=== PATIENT | male | born 1995 | race Caucasian/White ===

== ENCOUNTER 2023-12-10 09:09 | Observation (INO) | payer OTHER, SELFPAY ==
--- NOTE | ~2023-12-10 | US_ITS ---
EXAMINATION: US abdomen limited DATE: 12/10/2023 13:05 INDICATION: Transaminitis. Hyperbilirubinemia. TECHNIQUE: Multiple grayscale and Doppler ultrasound images of the abdomen were obtained. COMPARISON: 12/20/2023 FINDINGS: The pancreatic head and body are normal in appearance. The pancreatic tail is not visualized. The vi sualized proximal abdominal aorta and inferior vena cava are normal. Liver has normal echogenicity an d contour, with a smooth surface. No liver lesion identified. No intrahepatic biliary duct dilation s uspected. Portal venous flow was seen in the hepatopetal, normal direction and has normal Doppler wav eform. Again seen are at least 10 hypoechoic nodular polyps along the dependent and nondependent wall s of the otherwise normal gallbladder. There is no shadowing cholelithiasis. The common bile duct dunia sures 4 mm, which is normal. Sonographic Foster sign was reported as negative by the machine repairer maintenance. IMPRESSION: 1. At least 10 gallbladder polyps measuring up to 7 mm scattered along the dependent and nondependent wall of the otherwise normal-appearing gallbladder. Otherwise unremarkable right upper quadrant ultr asound. Reviewed, dictated and finalized at location B. IMPRESSION: 1. At least 10 gallbladder polyps measuring up to 7 mm scattered along the depe ndent and nondependent wall of the otherwise normal-appearing gallbladder. Othe rwise unremarkable right upper quadrant ultrasound.
--- NOTE | ~2023-12-10 | CT_ITS ---
EXAMINATION: CT abdomen pelvis w con DATE: 12/10/2023 12:04 INDICATION: Epigastric pain. Transaminitis. Hyperbilirubinemia. TECHNIQUE: Computed tomography (CT) of the abdomen and pelvis was performed with 100 mL Omnipaque-350 intravenous contrast. Automated exposure control and iterative reconstruction technique were employe d. The dose-length product was 326.50 mGy-cm. COMPARISON: None FINDINGS: Lung bases are clear. Heart size is normal. No pericardial or pleural effusion. There are few soft ti ssue density polyps measuring up to 7 mm in maximal diameter along primarily nondependent wall of the otherwise normal gallbladder. Liver is normal. No intra or extra hepatic ductal or ductal dilation. Spleen, pancreas, bilateral adrenal glands and kidneys are normal. Bowels including the appendix are normal. Bladder is normal. No free intraperitoneal gas or fluid. No pathologically enlarged abdominal or pelvic lymphadenopathy. Bones are unremarkable. IMPRESSION: 1. No intra or extra hepatic biliary ductal dilation or other acute intra-abdominal/pelvic process. 2. Multiple gallbladder polyps measuring up to 7 mm. Reviewed, dictated and finalized at location B. IMPRESSION: 1. No intra or extra hepatic biliary ductal dilation or other acute intra-abdom inal/pelvic process. 2. Multiple gallbladder polyps measuring up to 7 mm.
--- NOTE | ~2023-12-10 | MR_ITS ---
EXAMINATION: MR MRCP wo/w con/w 3D wo ind DATE: 12/11/2023 11:54 INDICATION: Abnormal liver function tests. Abdominal pain. TECHNIQUE: Magnetic resonance imaging (MRI) of the abdomen was performed without and with 15 mL Multi Francesca intravenous contrast. Sequences included coronal T2-weighted FS FSE, coronal T2-weighted FSE, a xial T1-weighted LAVA, coronal FS FIESTA, axial dual-echo T1-weighted SPGR, coronal lava-FLEX, sagitt al T2-weighted FSE, axial T2-weighted FSE, and axial DWI. Thick-slab T2-weighted FSE images were obta ined for magnetic resonance cholangiopancreatography (MRCP). Maximum intensity projection 3-D reconst ructions of the volumetric data were created by the technologist. Postcontrast sequences included cor onal LAVA-flex and time course of axial T1-weighted LAVA. COMPARISON: CT abdomen and pelvis 12/10/2023 FINDINGS: ABDOMEN MRI: There is a 4 mm cyst in the liver. The gallbladder is normal in size. There are polyps i n the gallbladder measuring up to 6 mm, likely benign cholesterol polyps needing no follow-up. The sp naman, pancreas, adrenal glands, and kidneys are normal. There are no dilated loops of bowel. ABDOMEN MRCP: The common duct is normal and measures 3 mm. No choledocholithiasis. IMPRESSION: 1. No etiology for the patient's symptoms. Reviewed, dictated and finalized at location A.
[2023-12-10 09:12] VITALS: BP 130/80; PULSE 74; RESP 14; TEMP 36.8; O2SAT 100
[2023-12-10 09:24] LABS: Basophils Percent Auto 0.4 % (0.2-1.2); Eosinophils Absolute Auto 0.2 K/mm3 (0-0.3); Eosinophils Percent Auto 1.9 % (0-4.4); Hematocrit 51.2 % (42.0-52.0); Hemoglobin 17.8 g/dL (14.0-18.0); Immature Granulocyte Absolute 0.03 K/mm3 (0.00-0.031); Immature Granulocyte Percent A 0.3 % (0-0.5); Lymphocytes Absolute Auto 1.54 K/mm3 (0.9-3.2); Lymphocytes Percent Auto 15.2 % (18.3-44.2); Mean Corpuscular HGB Conc 34.8 g/dl (32-36); Mean Corpuscular Hemoglobin 30.7 pg (26-34); Mean Corpuscular Volume 88.3 fl (80-100); Mean Platelet Volume 10.5 fl (7.4-10.4); Monocytes Absolute Auto 0.7 K/mm3 (0.1-0.6); Monocytes Percent Auto 6.6 % (2.6-8.5); Neutrophils Absolute Auto 7.7 K/mm3 (1.3-6.7); Neutrophils Percent Auto 75.6 % (45.5-73.1); Platelet Count Result 203 k/mm3 (150-375); Red Cell Distribution Width 12.9 % (11.5-14.5); White Blood Count 10.1 K/mm3 (4.5-10.0)
--- NOTE | 2023-12-10 09:50 | ECG_ITS ---
Test Date: 2023-12-10 09:59:05 Measurements Intervals [place] Rate: 69 P: 47 MI: 177 QRS: 79 QRSD: 95 T: 35 QT: 344 QTc: 369 Interpretive Statements SINUS RHYTHM ST ELEVATION CONSISTENT WITH INJURY, PERICARDITIS, OR EARLY REPOLARIZATION ABNORMAL ECG No previous ECG available for comparison Electronically Signed On 12-10-2023 10:41:44 CDT by Vincent Vines D.O.
--- NOTE | 2023-12-10 09:51 | ED.ABDPAIN ---
HPI - Abdominal Pain General Chief Complaint: Abdominal Pain <Jacquelin Ellsworth PA-C - Last Filed: 12/10/23 19:00> Stated Complaint: epigastric pain <Jacquelin Ellsworth PA-C - Last Filed: 12/10/23 19:00> Time Seen by Provider: 12/10/23 09:12 <Jacquelin Ellsworth PA-C - Last Filed: 12/10/23 19:00> Source: patient <MARVEL Interiano Last Filed: 12/10/23 19:00> Mode of arrival: ambulatory <MARVEL Interiano Last Filed: 12/10/23 19:00> Limitations: no limitations <Jacquelin Ellsworth PA-C - Last Filed: 12/10/23 19:00> History of Present Illness HPI narrative: This is a 27-year-old male that presents to the emergency department for epigastric abdominal pain. Ongoing since earlier this morning. Reports the pain is sharp and constant in nature. Denies fever, vomiting. <Jacquelin Ellsworth PA-C - Last Filed: 12/10/23 19:00> Related Data Home Medications: Home Medications Medication Instructions Recorded Confirmed No Home Medications 12/10/23 12/10/23 <Jacquelin Ellsworth PA-C - Last Filed: 12/10/23 19:00> Allergies/Adverse Reactions: Allergies Allergy/AdvReac Type Severity Reaction Status Date / Time No Known Allergies Allergy Verified 12/10/23 09:21 <Jacquelin Ellsworth PA-C - Last Filed: 12/10/23 19:00> Review of Systems Review of Systems: CONSTITUTIONAL: Denies fever GASTROINTESTINAL: Reports abdominal pain. Denies nausea, vomiting, or diarrhea. GENITOURINARY: Denies dysuria <Jacquelin Ellsworth PA-C - Last Filed: 12/10/23 19:00> All systems reviewed & are unremarkable except as noted in HPI and below <Jacquelin Ellsworth PA-C - Last Filed: 12/10/23 19:00> [facility] Past Medical History Medical History: Medical History No active medical problems <Jacquelin Ellsworth PA-C - Last Filed: 12/10/23 19:00> Surgical History Surgical History: Surgical History No pertinent past surgical history <Jacquelin Ellsworth PA-C - Last Filed: 12/10/23 19:00> Family History Family History: Family History (Updated 12/10/23 @ 21:26 by Luisa Dimas PA-C) Other Family history non-contributory <Jacquelin Ellsworth PA-C - Last Filed: 12/10/23 19:00> Social History Social History: Social History (Updated 12/10/23 @ 21:26 by Luisa Dimas PA-C) Social History: Surrogate medical decision maker: Diana Jasmine, spouse. Code status: Full code. Smoking status: Current every day smoker Tobacco type: e-cigarettes/vaping Alcohol intake: never Substance use: never Do You Feel Safe in your Home?: Yes Lack of Transportation: No Lack of Food: Never True Current Housing: I Have Housing Concerned About Future Housing: No Difficulty Paying Gas/Electric Bills: No Difficulty Paying for Meds: No Currently Unemployed: No Education: Decline to Answer Difficulty w/ Childcare or Family Care: No Additional living arrangements comments: Lives with spouse and their 3 young children. 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 Spiritual care concerns: No <Jacquelin Ellsworth PA-C - Last Filed: 12/10/23 19:00> Exam Narrative: GENERAL: Well-appearing, well-nourished, and in no acute distress. HEAD: Normocephalic, atraumatic. EYES: EOMI. CHEST: Clear to auscultation. No respiratory distress. No wheezes rales or rhonchi HEART: Regular rate and rhythm. No murmur heard. Normal peripheral pulses. ABDOMEN: Soft, nontender, nondistended, normal active bowel sounds. EXTREMITIES: Normal range of motion. No edema. SKIN: Warm, dry, no rash. NEURO: No focal deficits. Alert and oriented x3. PSYCH: Normal mood and affect <Jacquelin Ellsworth PA-C - Last Filed: 12/10/23 19:00> Course Course Emergency Course: Patient updated on his workup and recommendation for admission for further evaluation <Jacquelin Paris
[2023-12-10 09:54] LABS: Platelet Estimate Adequate (Adequate); Schistocytes None Seen
[2023-12-10] MEDS: ONDANSETRON INJ 4 MG/2 ML VIAL IV PUSH (09:55)
[2023-12-10] MEDS: SODIUM CHLORIDE 0.9% IV 1,000 ML 999 ML IV CONT (09:55)
[2023-12-10] MEDS: PANTOPRAZOLE SODIUM IV 40 MG VIAL IV PUSH (09:55)
[2023-12-10 09:56] LABS: Add Urine Microscopic? YES; Appearance Urine Cloudy (Clear); Bacteria Urine None Seen /hpf; Bilirubin Urine 2+ (Negative); Blood Urine Negative (Negative); Color Urine Dark Yellow (Yellow); Glucose Urine UA Negative (Negative); Ketones Urine Negative (Negative); Leukocyte Esterase Ur Negative LEU/UL (Negative); Nitrate Urine Negative (Negative); Non Pathogenic Casts 0-2; Protein Urine Trace mg/dL (Negative); RBC Urine 0-2 /hpf (0-2); Specific Grav Ur 1.027 (1.001-1.035); Squamous Epithelial Cell Urine None Seen /hpf (Few); WBC Urine 0-5 /hpf (0-3); pH Urine 6.5 (5.0-9.0)
[2023-12-10 10:36] LABS: Alanine Aminotransferase 259 U/L (6-50); Anion Gap 18 mmol/L (4-12); Aspartate Amino Transferase 433 U/L (17-59); Blood Urea Nitrogen 11 mg/dL (9-20); Calcium 9.1 mg/dL (8.4-10.2); Carbon Dioxide 26 mmol/L (22-30); Chloride 94 mmol/L (98-107); Estimated CRCL calculation 108 ml/min; Estimated Glomerular Filt Rate > 60; Glucose 126 mg/dL (65-110); Potassium 3.7 mmol/L (3.4-5.0); Sodium 138 mmol/L (137-145)
[2023-12-10 10:37] LABS: Alkaline Phosphatase 81 U/L (38-126); Lipase 65 U/L (23-300)
[2023-12-10 10:47] LABS: Troponin I < 0.012 ng/mL (0.000-0.034)
[2023-12-10 11:05] LABS: D Dimer < 0.22 ug/mL (<0.48)
[2023-12-10 11:19] VITALS: BP 111/68; PULSE 67; O2SAT 100
[2023-12-10 14:05] VITALS: BP 112/73; PULSE 65; O2SAT 98
[2023-12-10 15:51] VITALS: BMI 26.0
[2023-12-10 15:56] VITALS: BP 128/61; PULSE 60; RESP 20; TEMP 36.2; O2SAT 100
--- NOTE | 2023-12-10 15:56 | ADMGEN ---
This patient, Jarod Ferraro, was admitted to [facility] Surg Room 315-01. Patient/family oriented to hospital policies and general routines including ID bracelet, bed and alarms, visiting hours, pain management, procedures, bathroom and other care routines, personal items, smoking policy, room service/diet, and visiting hours. Information on how to activate the Rapid Response Team has been discussed. Patient/Family are encouraged to report perceived risks to care and to ask questions if they do not understand what they are told or what they should do.
--- NOTE | 2023-12-10 16:01 | PM.CNGS ---
Assessment and Plan Assessment and plan (1) Polyp of gallbladder: Code(s): K82.4 - Cholesterolosis of gallbladder Status: Acute Assessment and Plan: Patient presented with epigastric abdominal pain that has since resolved. CT scan and ultrasound show multiple gallbladder polyps measuring up to 7 mm with an otherwise normal-appearing gallbladder. Labs revealed elevated LFTs with a total bilirubin of 4.0. Agree with GI consultation and they have already ordered an MRCP. Etiology for his abdominal pain is unclear at this point. Will await further GI workup and MRCP prior to deciding on any surgical intervention. His abdominal pain has resolved and his abdominal exam is completely benign. Will continue to follow along. (2) Transaminitis: Code(s): R74.01 - Elevation of levels of liver transaminase levels Status: Acute Assessment and Plan: GI consulted and MRCP ordered (3) Epigastric abdominal pain: Code(s): R10.13 - Epigastric pain Status: Acute Assessment and Plan: Etiology unclear. Pain has resolved. It is possible to have symptoms from gallbladder polyps and/or potentially have fragments of a cholesterol polyp break free, which could cause symptoms similar to stones. This could also be GI related, but it is concerning that his LFTs are elevated. Will await GI consultation and MRCP. See plan above. Plan I have discussed the patient's case and plan of care with Dr. Myles. Thank you for allowing us to see the patient in consultation and we will continue to follow along with you. History of Present Illness Consult details Consult date: 12/10/23 Reason for consult: other (Gallbladder polyps) Requesting physician: Jacquelin Ellsworth PA-C Narrative: This is a 27 yo man who is otherwise healthy, who we were asked to see in surgical consultation for gallbladder polyps. He presented to the ED today for complaints of epigastric abdominal pain x 1 day. He reports having tator tot casserole for dinner last night and a few hours later, around midnight, he developed epigastric abdominal pain that he describes as being a sharp pain with no radiating factors. Denies any associated symptoms. He was unable to sleep due to the pain. He could only lay flat on his back to get comfortable in bed, as lying on his sides and stomach were painful. This morning, his pain persisted and he presented to the ED. Labs showed WBC count 10,100, total bilirubin 4.0, AST 433, ALT 259, alk phos 81, lipase normal, and troponin negative. UA 2+ bilirubin, 2.[address] scan abdomen and pelvis showed no intra or extrahepatic biliary ductal dilation or other acute intra-abdominal/pelvic process, multiple gallbladder polyps measuring up to 7mm. RUQ abdominal US showed at least 10 gallbladder polyps measuring up to 7 mm in an otherwise normal-appearing gallbladder. He is now seen in the ED. GI was also consulted and ordered an MRCP. With further questioning, he reports that today he noticed dark orange-brown colored urine. Denies acholic stools. Reports his abdominal pain has completely resolved since coming into the ER. He has received Protonix IV, Zofran, and one liter IV fluids. Denies history of similar pain in the past. No previous abdominal surgeries. Review of Systems Review of Systems: All systems reviewed & are unremarkable except as noted in HPI and below PMFSH Past Medical History Medical History (Updated 12/10/23 @ 16:16 by ABRIL Olivas) No active medical problems Surgical History Surgical History No pertinent past surgical history Social History Social History Smoking status: Current every day smoker Tobacco type: e-cigarettes/vaping Alcohol intake: never Substance use: never Do You Feel Safe in your Home?: Yes Lack of Transportation: No Lack of Food: Never True Current Housing:
--- NOTE | 2023-12-10 16:54 | PM.IMHP ---
H&P: HPI History of Present Illness Date/Time: 12/10/23 16:00 Chief Complaint: Abdominal pain. Narrative: The previously healthy 27-year-old male who presented to the emergency department via private vehicle for evaluation of abdominal pain. The patient provides the following history. He had tater tot casserole for dinner last night and sometime around midnight he developed epigastric abdominal pain which he describes as being sharp and shooting in nature. It does not radiate and he denies aggravating and alleviating factors. He was unable to sleep due to the pain. It is not necessarily unusual for him to have heartburn however the symptoms are much different. This morning he took 2 Tums at about 08:00 without improvement and he came in for evaluation. He had a bowel movement sometime in the middle of the night which was unremarkable. He has not noticed any bright red blood or dark stools. He also denies bloating, belching, nausea, and vomiting. She also denies fever, chills, sweats, chest pain, and shortness of breath. He has no known history of gastritis, ulcers, gallbladder disease, or pancreatitis. He denies alcohol abuse and NSAID use. He does drink several energy drinks a day however. Weight has remained stable. No recent travel or sick contacts. In the ED: Labs were significant for WBC count of 10.1, total bilirubin 4.0, AST 433, ALT 259, alkaline phosphatase 81, normal lipase. CT of the abdomen and pelvis showed no intra or extrahepatic biliary ductal dilatation or other acute intra-abdominal/pelvic process but did note multiple gallbladder polyps measuring up to 7 mm. Right upper quadrant ultrasound showed at least 10 gallbladder polyps in an otherwise normal-appearing gallbladder. Review of Systems Review of Systems: 12 systems were reviewed and are negative except for as per HPI. [facility] Past Medical History Medical History No active medical problems Surgical History Surgical History No pertinent past surgical history Family History Family History (Updated 12/10/23 @ 21:26 by Luisa Dimas PA-C) Other Family history non-contributory Social History Social History (Updated 12/10/23 @ 21:26 by Luisa Dimas PA-C) Social History: Surrogate medical decision maker: Diana Ferraro, spouse. Code status: Full code. Smoking status: Current every day smoker Tobacco type: e-cigarettes/vaping Alcohol intake: never Substance use: never Do You Feel Safe in your Home?: Yes Lack of Transportation: No Lack of Food: Never True Current Housing: I Have Housing Concerned About Future Housing: No Difficulty Paying Gas/Electric Bills: No Difficulty Paying for Meds: No Currently Unemployed: No Education: Decline to Answer Difficulty w/ Childcare or Family Care: No Additional living arrangements comments: Lives with spouse and their 3 young children. 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 Spiritual care concerns: No Meds Home Medications and Allergies Home Medications Medication Instructions Recorded Confirmed Type No Home Medications 12/10/23 12/10/23 History Allergies Allergy/AdvReac Type Severity Reaction Status Date / Time No Known Allergies Allergy Verified 12/10/23 09:21 Vital Signs Vital Signs - 24 hr 12/10/23 09:12 12/10/23 11:19 12/10/23 14:05 Temperature 98.2 F Pulse Rate 74 67 65 Respiratory Rate 14 Blood Pressure 130/80 111/68 112/73 Pulse Oximetry 100 100 98 Oxygen Delivery Room Air 12/10/23 15:56 12/10/23 16:03 Temperature 97.1 F L Pulse Rate 60 Respiratory Rate 20 Blood Pressure 128/61 Pulse Oximetry 100 Oxygen Delivery Room Air Exam Narrative: General: Well-developed, nontoxic-appearing male in the semi-Ponce position in bed. Weight: 80.1 kg. BMI: 26.1. HEENT: PERRL, EOMI
[2023-12-10 20:53] VITALS: BP 116/67; PULSE 65; RESP 14; TEMP 37.2; O2SAT 98
[2023-12-10] MEDS: SODIUM CHLORIDE 0.9% IV 1,000 ML 100 ML IV CONT (22:25)
[2023-12-11 06:00] VITALS: BP 111/81; PULSE 66; RESP 16; TEMP 37.2; O2SAT 99
[2023-12-11 07:35] LABS: Hematocrit 46.9 % (42.0-52.0); Hemoglobin 16.1 g/dL (14.0-18.0); Mean Corpuscular HGB Conc 34.3 g/dl (32-36); Mean Corpuscular Hemoglobin 30.1 pg (26-34); Mean Corpuscular Volume 87.8 fl (80-100); Mean Platelet Volume 10.6 fl (7.4-10.4); Platelet Count Result 191 k/mm3 (150-375); Red Blood Count 5.34 M/mm3 (4.6-6.20); Red Cell Distribution Width 13.2 % (11.5-14.5); White Blood Count 5.4 K/mm3 (4.5-10.0)
--- NOTE | 2023-12-11 07:36 | P.CONGI_ITS ---
I, Flakito Butler MD, have provided a substantive portion of the care of this patient and discussed the patient with my Nurse Practitioner. I have reviewed any new relevant radiographic and laboratory results including medications. I agree with her documentation as noted below.?I personally performed the medical decision making and much of the history and exam for this encounter. briefly, he is a healthy anuj not really taking any medications other than protein supplements for almost a year while he was working out daily (he quit about 2 weeks ago after did not have any more time because work). He is here with new onset of severe epigastric pain that did no go away, work up c/w elevated liver enzymes, bili 4, transaminases 200-400 (he normally does not see a doctor, he is not aware of liver disease), imaging showed GB polyps but normal bile duct. Denies alcohol use, hepatitis, illicit drugs. Surgery on board, may need lap namita and probably can get liver biopsy at same time. Will check CK level, also liver work up to check for other less common conditions. Wonder if could be related to protein supplements that he has been using when working out, recommend to not use anymore. Pain is gone after iv pain med. Assessment and Plan Assessment and plan (1) Transaminitis: Code(s): R74.01 - Elevation of levels of liver transaminase levels Status: Acute (2) Hyperbilirubinemia: Code(s): E80.6 - Other disorders of bilirubin metabolism Status: Acute (3) Epigastric abdominal pain: Code(s): R10.13 - Epigastric pain Status: Acute (4) Polyp of gallbladder: Code(s): K82.4 - Cholesterolosis of gallbladder Status: Acute Plan 1. Epigastric abdominal pain/elevated LFT's/gallbladder polyps: Acute onset of severe epigastric pain that started yesterday around 12 am and remained constant until the patient was given pain medication in the ER. Had a similar episode 6- 12 months ago but pain only lasted a short time before resolving without intervention.Abdominal ultrasound showed at least 10 gallbladder polyps measuring up to [address] showed multiple gallbladder polyps measuring up to 7 mm and no intra or extrahepatic biliary ductal dilation. Patient denies prior Hx of LFT elevation or liver disease. He is a non drinker. Labs on admission showed normal lipase at 65. Total bilirubin 4.0, AST 433, ALT 259, alkaline phosphatase 51. DDX: biliary colic from cholelithiasis, acute cholecystitis, choledocholithiasis. * Awaiting MRCP to evaluate for choledocholithiasis as etiology of elevated LFTs and abdominal pain * If MRCP shows choledocholithiasis, will proceed with ERCP for stone extraction * If no choledocholithiasis, will discuss with surgery regarding timing of cholecystectomy Thank you for allowing me to share in the care of this very nice patient. This report may have been done utilizing a voice recognition system. Attempts have been made to correct errors. However, there may be uncorrected grammatical, spelling, and recognition errors present. GI Consult Note Consult date/time: 12/11/23 07:36 Reason for consult: Elevated LFT's HPI: This is a pleasant 27 year old male with no significant past medical surgical history who presented to the ER on 12/09/2023 with complaints of epigastric abdominal pain. GI consulted for elevated LFT's. Patient admitted for epigastric pain and elevated LFT's. Patient reports the pain started at 12 AM on 12/09/2023 and was sharp in character. The pain was constant and did not improve or worsen with eating. Pain improved with pain me dications in the
--- NOTE | 2023-12-11 07:36 | WPDGICN ---
Assessment and Plan Assessment and plan (1) Transaminitis: Code(s): R74.01 - Elevation of levels of liver transaminase levels Status: Acute (2) Hyperbilirubinemia: Code(s): E80.6 - Other disorders of bilirubin metabolism Status: Acute (3) Epigastric abdominal pain: Code(s): R10.13 - Epigastric pain Status: Acute (4) Polyp of gallbladder: Code(s): K82.4 - Cholesterolosis of gallbladder Status: Acute Plan 1. Epigastric abdominal pain/elevated LFT's/gallbladder polyps: Acute onset of severe epigastric pain that started yesterday around 12 am and remained constant until the patient was given pain medication in the ER. Had a similar episode 6-12 months ago but pain only lasted a short time before resolving without intervention.Abdominal ultrasound showed at least 10 gallbladder polyps measuring up to [address] showed multiple gallbladder polyps measuring up to 7 mm and no intra or extrahepatic biliary ductal dilation. Patient denies prior Hx of LFT elevation or liver disease. He is a non drinker. Labs on admission showed normal lipase at 65. Total bilirubin 4.0, AST 433, ALT 259, alkaline phosphatase 51. DDX: biliary colic from cholelithiasis, acute cholecystitis, choledocholithiasis. Awaiting MRCP to evaluate for choledocholithiasis as etiology of elevated LFTs and abdominal pain If MRCP shows choledocholithiasis, will proceed with ERCP for stone extraction If no choledocholithiasis, will discuss with surgery regarding timing of cholecystectomy Thank you for allowing me to share in the care of this very nice patient. This report may have been done utilizing a voice recognition system. Attempts have been made to correct errors. However, there may be uncorrected grammatical, spelling, and recognition errors present. GI Consult Note Consult date/time: 12/11/23 07:36 Reason for consult: Elevated LFT's HPI: This is a pleasant 27 year old male with no significant past medical surgical history who presented to the ER on 12/09/2023 with complaints of epigastric abdominal pain. GI consulted for elevated LFT's. Patient admitted for epigastric pain and elevated LFT's. Patient reports the pain started at 12 AM on 12/09/2023 and was sharp in character. The pain was constant and did not improve or worsen with eating. Pain improved with pain medications in the ER. Denies nausea, vomiting, dysphagia or odynophagia. Patient reports occasional heartburn. Denies changes in appetite. He is having daily BM's that are formed and non urgent. Denies diarrhea, constipation, hematochezia or melena. Patient has never had a colonoscopy or EGD. Patient has no prior surgeries and has all original body parts. Patient takes no NSAIDs regularly. Patient vapes daily but denies alcohol or marijuana use. No family history of GI malignancies. Patient reports a similar episode of pain a couple months to a year ago that self-resolved and was evaluated by EMS. ENDOSCOPY HISTORY: EGD: Patient has never had an EGD COLONOSCOPY: Patient has never had a colonoscopy LABS AND STOOL STUDIES: Labs 12/10/2023 Sodium 138, potassium 3.7, BUN 11, creatinine 0.90, GFR > 60. WBC is 10, HGB 18, HCT 51, MCV 88, platelets 203. Total bilirubin 4.0, AST 433, ALT 259, alkaline phosphatase 81, albumin 5.0, lipase 65, calcium 9.1. IMAGING: Abdominal Ultrasound 12/10/2023: At least 10 gallbladder polyps measuring up to 7 mm scattered along the dependent and nondependent wall of the otherwise normal-appearing gallbladder. Otherwise unremarkable right upper quadrant ultrasound. CT abd/pelvis w/contrast 12/10/2023: No intra or extra hepatic biliary ductal dilation or other acute intra-abdominal/pelvic process. Multiple gallbladder polyps measuring up to 7 mm. Review of Systems Constitutional: Constitutional: Reports as per HPI ENT: Reports as per
[2023-12-11 08:02] LABS: Alanine Aminotransferase 501 U/L (6-50); Albumin Level 4.1 g/dL (3.5-5.1); Alkaline Phosphatase 109 U/L (38-126); Anion Gap 9 mmol/L (4-12); Aspartate Amino Transferase 384 U/L (17-59); Bilirubin Direct 1.6 mg/dL (0-0.3); Blood Urea Nitrogen 8 mg/dL (9-20); Calcium 8.5 mg/dL (8.4-10.2); Carbon Dioxide 27 mmol/L (22-30); Chloride 104 mmol/L (98-107); Estimated CRCL calculation 98 ml/min; Estimated Glomerular Filt Rate > 60; Glucose 103 mg/dL (65-110); Magnesium 2.1 mg/dL (1.6-2.3); Potassium 4.1 mmol/L (3.4-5.0); Sodium 140 mmol/L (137-145)
[2023-12-11] MEDS: PANTOPRAZOLE SODIUM IV 40 MG VIAL IV PUSH (08:36)
--- NOTE | 2023-12-11 10:50 | PC.NURSE ---
Pt to MRI
--- NOTE | 2023-12-11 11:57 | PC.NURSE ---
Pt returned to room from MRI
--- NOTE | 2023-12-11 12:23 | PM.IMPN ---
Progress Note: A&P Assessment and Plan (1) Epigastric abdominal pain: Code(s): R10.13 - Epigastric pain Status: Acute Assessment and Plan: Improved. Denies at present. (2) Polyp of gallbladder: Code(s): K82.4 - Cholesterolosis of gallbladder Status: Acute Assessment and Plan: MRCP today showed: The common duct is normal and measures 3 mm. No choledocholithiasis. IMPRESSION: 1. No etiology for the patient's symptoms. Low fat diet for supper then NPO after midnight. (3) Transaminitis: Code(s): R74.01 - Elevation of levels of liver transaminase levels Status: Acute Assessment and Plan: Labs this morning: WBC 5.4, total bilirubin 5.0, direct bilirubin 1.6, AST 384, ALT 501, alkaline phosphatase 109. Hepatitis panel negative. Acetaminophen level <10. MRCP today showed: The common duct is normal and measures 3 mm. No choledocholithiasis. (4) Hyperbilirubinemia: Code(s): E80.6 - Other disorders of bilirubin metabolism Status: Acute Assessment and Plan: 12/11/23: total bilirubin 5.0, direct bilirubin 1.6. 12/10/23: total bilirubin 4.0. Plan The patient presented to the emergency department for evaluation of epigastric pain as detailed in HPI. Labs, imaging, EKG, and all reports were personally reviewed. Etiology of his symptoms is not entirely clear. It does sound as though he has GERD quite frequently and he may very well have underlying esophagitis or gastritis. He does not have right upper quadrant pain however total bilirubin, AST, and ALT were all elevated. CT of the abdomen pelvis and right upper quadrant ultrasound did not show evidence of cholelithiasis or cholecystitis but did note multiple gallbladder polyps measuring up to 7 mm. It is possible that he may have had a gallstone or a fragmented polyp break off and pass. GI and surgery have been consulted. MRCP has been completed. Analgesics and antiemetics are available as needed. Repeat labs in a.m. Findings and treatment plan were discussed with the patient. Questions were solicited and answered to satisfaction. Subjective Date/time seen: 12/11/23 12:23 Interval history: The previously healthy 27-year-old male who presented to the emergency department via private vehicle for evaluation of abdominal pain. The patient provides the following history. He had rios chaney for dinner last night and sometime around midnight he developed epigastric abdominal pain which he describes as being sharp and shooting in nature. It does not radiate and he denies aggravating and alleviating factors. He was unable to sleep due to the pain. It is not necessarily unusual for him to have heartburn however the symptoms are much different. Yesterday morning he took 2 Tums at about 08:00 without improvement and he came in for evaluation. He had a bowel movement sometime in the middle of the night which was unremarkable. He has not noticed any bright red blood or dark stools. He also denies bloating, belching, nausea, and vomiting. She also denies fever, chills, sweats, chest pain, and shortness of breath. He has no known history of gastritis, ulcers, gallbladder disease, or pancreatitis. He denies alcohol abuse and NSAID use. He does drink several energy drinks a day however. Weight has remained stable. No recent travel or sick contacts. In the ED: Labs were significant for WBC count of 10.1, total bilirubin 4.0, AST 433, ALT 259, alkaline phosphatase 81, normal lipase. CT of the abdomen and pelvis showed no intra or extrahepatic biliary ductal dilatation or other acute intra-abdominal/pelvic process but did note multiple gallbladder polyps measuring up to 7 mm. Right upper quadrant ultrasound showed at least 10 gallbladder polyps in an otherwise normal-appearing gallbladder Labs this morning: WBC 5.4, total bilirubin 5.0, direct bilirubin 1.6, AST 384, ALT 501, alkaline phosphatase 109. Hepatitis panel negative. Acetaminophen level <10
[2023-12-11 12:51] LABS: Hepatitis B Surface Antigen Negative (Negative)
[2023-12-11 12:53] LABS: HAV RESULT Negative (Negative); Hepatitis B Core IgM Result Negative (Negative)
[2023-12-11 13:05] LABS: Hepatitis C Virus Antibody Negative (Negative)
[2023-12-11 14:00] VITALS: BP 122/75; PULSE 75; RESP 14; TEMP 36.9; O2SAT 98
[2023-12-11 14:22] LABS: Acetaminophen < 10 ug/mL (10-30)
--- NOTE | 2023-12-11 14:38 | PM.PNGS ---
Progress Note: A&P Assessment and Plan (1) Polyp of gallbladder: Code(s): K82.4 - Cholesterolosis of gallbladder Status: Acute Assessment and Plan: will need interval cholecystectomy, d/w pt and family and they would like to have it done prior to dc if possible (2) Hyperbilirubinemia: Code(s): E80.6 - Other disorders of bilirubin metabolism Status: Acute Assessment and Plan: sl increased, unclear etiology, cont workup per GI Subjective Subjective Date/Time Seen: 12/11/23 14:38 Interval history: no pain, reports all symptoms resolved Review of Systems Review of Systems: All systems reviewed & are unremarkable except as noted in HPI and below Exam Const: General: cooperative, comfortable and no acute distress Resp: Auscultation: clear to auscultation bilaterally Cardio: Rate: regular rate Rhythm: regular rhythm GI: Inspection: normal to inspection and non-distended GI Palp: No abdominal tenderness, Yes Soft to palpation and No Tenderness to palpation present (GI) Objective Data Vital Signs Vital Signs: Vital Signs - 24 hr 12/10/23 15:56 12/10/23 16:03 12/10/23 20:53 Temperature 36.2 C L 37.2 C Pulse Rate 60 65 Respiratory Rate 20 14 Blood Pressure 128/61 116/67 Pulse Oximetry 100 98 Oxygen Delivery Room Air 12/10/23 20:00 12/11/23 06:00 12/11/23 08:36 Temperature 37.2 C Pulse Rate 66 Respiratory Rate 16 Blood Pressure 111/81 Pulse Oximetry 99 Oxygen Delivery Room Air Room Air Intake/Output Intake/Output: Intake & Output 12/08/23 12/09/23 12/10/23 12/11/23 23:59 23:59 23:59 23:59 Intake Total 1240 0 Balance 1240 0 Meds/Results Medications: Active Medications Generic Name Dose Route Start Last Admin Trade Name Freq PRN Reason Stop Dose Admin Acetaminophen 650 mg 12/10/23 21:30 Acetaminophen 325 Mg Tablet PO Q6H PRN Mild Pain (1-3) or Fever Morphine Sulfate 2 mg 12/10/23 21:30 Morphine Sulfate (*Crx) 2 Mg/Ml Inj IV PUSH Q4H PRN Pain Rated 7-10 Pantoprazole Sodium 40 mg 12/11/23 09:00 12/11/23 08:36 Pantoprazole Sodium Iv 40 Mg Vial IV PUSH 40 mg QAM REINA Administration Radiology Results: ITS Impressions Abdomen/Pelvis CT 12/10/23 12:14 IMPRESSION: 1. No intra or extra hepatic biliary ductal dilation or other acute intra-abdominal/pelvic process. 2. Multiple gallbladder polyps measuring up to 7 mm. Abdomen Ultrasound 12/10/23 13:10 IMPRESSION: 1. At least 10 gallbladder polyps measuring up to 7 mm scattered along the dependent and nondependent wall of the otherwise normal-appearing gallbladder. Otherwise unremarkable right upper quadrant ultrasound. MRCP 12/11/23 12:01 IMPRESSION: 1. No etiology for the patient's symptoms. Labs Labs: Laboratory Results - last 24 hr 12/11/23 12/11/23 07:15 13:57 WBC 5.4 RBC 5.34 Hgb 16.1 Hct 46.9 MCV 87.8 MCH 30.1 MCHC 34.3 RDW 13.2 Plt Count 191 MPV 10.6 H Sodium 140 Potassium 4.1 Chloride 104 Carbon Dioxide 27 Anion Gap 9 BUN 8 L Creatinine 1.00 Estim Creat Clear Calc 98 Estimated GFR > 60 Glucose 103 Calcium 8.5 Magnesium 2.1 Total Bilirubin 5.0 H Direct Bilirubin 1.6 H AST 384 H ALT 501 H Alkaline Phosphatase 109 Total Protein 7.0 Albumin 4.1 Acetaminophen < 10 L Hepatitis A IgM Ab Negative Hep Bs Antigen Negative Hep B Core IgM Ab Negative Hepatitis C Ab Screen Negative
[2023-12-11 21:01] VITALS: BP 110/54; PULSE 69; RESP 14; TEMP 36.6; O2SAT 98
[2023-12-12] VITALS (14 sets, daily range): BP systolic 102–147; BP diastolic 54–97; PULSE 61–94; RESP 12–20; TEMP 35.8–36.8; O2SAT 96–100
--- NOTE | 2023-12-12 02:24 | PC.NURSE ---
This RN returned the wifes call on 12/11/2023 at [id number]. Questions were answered and was informed of surgical procedure time
[2023-12-12 06:33] LABS: Basophils Percent Auto 0.7 % (0.2-1.2); Eosinophils Percent Auto 0.9 % (0-4.4); Hematocrit 49.6 % (42.0-52.0); Immature Granulocyte Absolute 0.03 K/mm3 (0.00-0.031); Immature Granulocyte Percent A 0.7 % (0-0.5); Lymphocytes Absolute Auto 1.55 K/mm3 (0.9-3.2); Lymphocytes Percent Auto 35.2 % (18.3-44.2); Mean Corpuscular HGB Conc 34.3 g/dl (32-36); Mean Corpuscular Hemoglobin 30.6 pg (26-34); Mean Corpuscular Volume 89.2 fl (80-100); Mean Platelet Volume 10.8 fl (7.4-10.4); Monocytes Absolute Auto 0.3 K/mm3 (0.1-0.6); Monocytes Percent Auto 7.3 % (2.6-8.5); Neutrophils Absolute Auto 2.4 K/mm3 (1.3-6.7); Neutrophils Percent Auto 55.2 % (45.5-73.1); Platelet Count Result 194 k/mm3 (150-375); Red Blood Count 5.56 M/mm3 (4.6-6.20); Red Cell Distribution Width 13.1 % (11.5-14.5); White Blood Count 4.4 K/mm3 (4.5-10.0)
[2023-12-12 06:52] LABS: Alanine Aminotransferase 409 U/L (6-50); Albumin Level 4.7 g/dL (3.5-5.1); Alkaline Phosphatase 115 U/L (38-126); Anion Gap 11 mmol/L (4-12); Aspartate Amino Transferase 176 U/L (17-59); Bilirubin,Total 2.1 mg/dL (0.2-1.3); Blood Urea Nitrogen 9 mg/dL (9-20); Calcium 9.2 mg/dL (8.4-10.2); Carbon Dioxide 29 mmol/L (22-30); Chloride 100 mmol/L (98-107); Creatine Kinase 121 U/L (55-170); Estimated CRCL calculation 108 ml/min; Estimated Glomerular Filt Rate > 60; Glucose 95 mg/dL (65-110); Iron 141 ug/dL (49-181); Potassium 3.9 mmol/L (3.4-5.0); Sodium 140 mmol/L (137-145)
[2023-12-12 07:01] LABS: Percent Iron Saturation 51 % (20-50)
[2023-12-12] MEDS: PANTOPRAZOLE SODIUM IV 40 MG VIAL IV PUSH (08:22)
--- NOTE | 2023-12-12 10:31 | WPDHPUPDATE1 ---
History and Physical Update Update Date/Time: 12/12/23 10:31 History and Physical has been reviewed, including an updated exam of the patient. There are NO changes in the patient's condition. Risks, benefits, and alternatives have been discussed and questions answered. Patient agrees to proceed with procedure. after d/w GI will also get liver bx
--- NOTE | 2023-12-12 11:24 | WPDANESEPPF ---
Anes - Initial Pre Proc Eval Procedure: Operation Date: 12/12/23 12:00 Proposed Procedures p Laparoscopic Cholecystectomy, Liver Biopsy - Nela Myles MD Date/Time: 12/12/23 11:24 Surgeon: Sam Gates MD Pre Op Diagnosis: Transaminitis, Hyperbilirubinemia Patient Data Age: 27 Gender: M Height: 1.75 m Weight: 80.3 kg Last Vital Signs Temp 97.3 F L 12/12/23 05:40 Pulse 61 12/12/23 05:40 Resp 16 12/12/23 05:40 BP 102/61 12/12/23 05:40 Pulse Ox 100 12/12/23 05:40 O2 Del Method Room Air 12/12/23 08:00 Allergies Allergy/AdvReac Type Severity Reaction Status Date / Time No Known Allergies Allergy Verified 12/10/23 09:21 Home Medications Medication Instructions Recorded Confirmed Type No Home Medications 12/10/23 12/10/23 History Laboratory Tests 12/11/23 12/11/23 12/12/23 07:15 13:57 05:56 WBC 4.4 L K/mm3 (4.5-10.0) RBC 5.56 M/mm3 (4.6-6.20) Hgb 17.0 g/dL (14.0-18.0) Hct 49.6 % (42.0-52.0) MCV 89.2 fl (80-100) MCH 30.6 pg (26-34) MCHC 34.3 g/dl (32-36) RDW 13.1 % (11.5-14.5) Plt Count 194 k/mm3 (150-375) MPV 10.8 H fl (7.4-10.4) Immature Gran % (Auto) 0.7 H % (0-0.5) Neut % (Auto) 55.2 % (45.5-73.1) Lymph % (Auto) 35.2 % (18.3-44.2) Benzie % (Auto) 7.3 % (2.6-8.5) Eos % (Auto) 0.9 % (0-4.4) Baso % (Auto) 0.7 % (0.2-1.2) Lymph # (Auto) 1.55 K/mm3 (0.9-3.2) Benzie # (Auto) 0.3 K/mm3 (0.1-0.6) Eos # (Auto) 0.0 K/mm3 (0-0.3) Baso # (Auto) 0.0 K/mm3 (0.0-0.1) Abs Immat Gran (auto) 0.03 K/mm3 (0.00-0.031) Absolute Neuts (auto) 2.4 K/mm3 (1.3-6.7) Absolute Nucleated RBC 0.000 K/mm3 (0.0-0.012) Nucleated RBC % 0.0 % (0.0-0.2) Sodium 140 mmol/L (137-145) Potassium 3.9 mmol/L (3.4-5.0) Chloride 100 mmol/L (98-107) Carbon Dioxide 29 mmol/L (22-30) Anion Gap 11 mmol/L (4-12) BUN 9 mg/dL (9-20) Creatinine 0.90 mg/dL (0.7-1.3) Estim Creat Clear Calc 108 ml/min Estimated GFR > 60 (59 - ) Glucose 95 mg/dL (65-110) Calcium 9.2 mg/dL (8.4-10.2) Iron 141 ug/dL (49-181) TIBC 277 ug/dL (265-497) % Saturation 51 H % (20-50) Ferritin 267.00 ng/mL (17.9-464) Total Bilirubin 2.1 H mg/dL (0.2-1.3) AST 176 H U/L (17-59) ALT 409 H U/L (6-50) Alkaline Phosphatase 115 U/L (38-126) Total Creatine Kinase 121 U/L (55-170) Total Protein 8.0 g/dL (6.3-8.2) Albumin 4.7 g/dL (3.5-5.1) Alpha-1-AT Phenotype Pending Ceruloplasmin Pending Acetaminophen < 10 L ug/mL (10-30) Mitochondria M2 IgG Ab Pending Actin IgG Antibody Pending Hepatitis A IgM Ab Negative (Negative) Hep Bs Antigen Negative (Negative) Hep B Core IgM Ab Negative (Negative) Hepatitis C Ab Screen Negative (Negative) Patient hx anesthesia problems: none Family hx anesthesia problems: none Results Review: All pre-operative results and documents have been reviewed as part of the pre-operative evaluation. [facility] Past Medical History Medical History No active medical problems Surgical History Surgical History No pertinent past surgical history Family History Family History (Updated 12/10/23 @ 21:26 by Luisa Dimas PA-C) Other Family history non-contributory Social History Social History (Updated 12/10/23 @ 21:26 by Luisa Dimas PA-C) Social His
[2023-12-12] MEDS: LACTATED RINGERS 1,000 ML 30 ML IV CONT (11:35)
[2023-12-12] MEDS: ceFAZolin 2 GM/D5W 50 ML 2 GM/50 ML BAG IVPB (11:59)
[2023-12-12] MEDS: BUPIVACAINE/EPINEPHRINE 0.5% 10 ML VIAL 30 ML INFILTRATE (11:59)
--- NOTE | 2023-12-12 12:21 | PM.IMPN ---
Progress Note: A&P Assessment and Plan (1) Epigastric abdominal pain: Code(s): R10.13 - Epigastric pain Status: Acute Assessment and Plan: Improved. Denies at present. (2) Polyp of gallbladder: Code(s): K82.4 - Cholesterolosis of gallbladder Status: Acute Assessment and Plan: MRCP today showed: The common duct is normal and measures 3 mm. No choledocholithiasis. IMPRESSION: 1. No etiology for the patient's symptoms. Patient NPO for a cholecystectomy and a liver biopsy today. (3) Transaminitis: Code(s): R74.01 - Elevation of levels of liver transaminase levels Status: Acute Assessment and Plan: Labs this morning: WBC 4.4, total bilirubin 2.1, direct bilirubin 1.6, AST 176, ALT 409, alkaline phosphatase 115. Hepatitis panel negative. Acetaminophen level <10. MRCP today showed: The common duct is normal and measures 3 mm. No choledocholithiasis. Patient NPO for a cholecystectomy and a liver biopsy today (4) Hyperbilirubinemia: Code(s): E80.6 - Other disorders of bilirubin metabolism Status: Acute Assessment and Plan: Improvin12/12/23:Total bilirubin 2.1. 12/11/23: total bilirubin 5.0, direct bilirubin 1.6. 12/10/23: total bilirubin 4.0. Plan The patient presented to the emergency department for evaluation of epigastric pain as detailed in HPI. Labs, imaging, EKG, and all reports were personally reviewed. Etiology of his symptoms is not entirely clear. It does sound as though he has GERD quite frequently and he may very well have underlying esophagitis or gastritis. He does not have right upper quadrant pain however total bilirubin, AST, and ALT were all elevated. CT of the abdomen pelvis and right upper quadrant ultrasound did not show evidence of cholelithiasis or cholecystitis but did note multiple gallbladder polyps measuring up to 7 mm. It is possible that he may have had a gallstone or a fragmented polyp break off and pass. GI and surgery have been consulted. MRCP has been completed. Analgesics and antiemetics are available as needed. Repeat labs in a.m. Findings and treatment plan were discussed with the patient. Questions were solicited and answered to satisfaction. Subjective Date/time seen: 12/12/23 12:21 Interval history: The previously healthy 27-year-old male who presented to the emergency department via private vehicle for evaluation of abdominal pain. The patient provides the following history. He had tater tot casserole for dinner last night and sometime around midnight he developed epigastric abdominal pain which he describes as being sharp and shooting in nature. It does not radiate and he denies aggravating and alleviating factors. He was unable to sleep due to the pain. It is not necessarily unusual for him to have heartburn however the symptoms are much different. Yesterday morning he took 2 Tums at about 08:00 without improvement and he came in for evaluation. He had a bowel movement sometime in the middle of the night which was unremarkable. He has not noticed any bright red blood or dark stools. He also denies bloating, belching, nausea, and vomiting. She also denies fever, chills, sweats, chest pain, and shortness of breath. He has no known history of gastritis, ulcers, gallbladder disease, or pancreatitis. He denies alcohol abuse and NSAID use. He does drink several energy drinks a day however. Weight has remained stable. No recent travel or sick contacts. In the ED: Labs were significant for WBC count of 10.1, total bilirubin 4.0, AST 433, ALT 259, alkaline phosphatase 81, normal lipase. CT of the abdomen and pelvis showed no intra or extrahepatic biliary ductal dilatation or other acute intra-abdominal/pelvic process but did note multiple gallbladder polyps measuring up to 7 mm. Right upper quadrant ultrasound showed at least 10 gallbladder polyps in an otherwise normal-appearing gallbladder Labs this morning: WBC 4.4, total bilirubin 2.1, di
--- NOTE | 2023-12-12 12:57 | W.PM.PROC2 ---
Procedure Note - Detailed Date of Procedure 12/12/23 Pre-op Diagnosis Gallbladder polyps, transaminitis Post-op Diagnosis Same Procedure Performed Laparoscopic cholecystectomy, Nikhil-Cut liver biopsy Surgeon Nela Myles MD Anesthesia General Indications 27-year-old male presenting to the hospital complaining of upper abdominal pain. Workup, including imaging, significant for gallbladder polyps, transaminitis. Findings Mild cholecystitis with sludge Description of Procedure The patient was taken to the operating room placed in the supine position. After adequate induction of general anesthesia, the patient was prepped and draped in normal sterile fashion. A time-out was then performed to verify the patient's identity as well as the procedure being performed. I then made a 5 mm incision in the infraumbilical region. Through this, a Veress needle was placed into the peritoneal cavity and CO2 gas was then insufflated. After adequate pneumoperitoneum was achieved, the Veress needle was removed and a 5 mm optiview trocar was placed through this incision under direct visualization. I then placed the laparoscope through this trocar site and under direct visualization placed a further 12 mm subxiphoid port as well as 2 additional 5 mm ports in the right upper abdomen. The gallbladder was then identified and was noted to be moderately inflamed, distended. I was able to place a grasper at the dome of the gallbladder and this was retracted anterior and cephalad up over the liver. A 2nd retractor was then placed at the infundibulum and retracted laterally, this allowed visualization of the triangle of Calot. I then was able to visualize the cystic duct in its entirety from its proximal insertion into the gallbladder, to its distal junction with the common hepatic/common bile duct junction. At this point, I carefully skeletonized the proximal cystic duct with the [place] dissector. I then clipped and transected the proximal cystic duct. Next I visualized the cystic artery. Again the artery was skeletonized, clipped, and transected. I then used the Bovie cautery to take down the peritoneal attachments of the gallbladder off the liver bed. Once the gallbladder specimen was completely detached, an endo-pouch was placed through the 12 mm port site. I then placed the gallbladder specimen into the Endo pouch and removed the endo-pouch from the 12 mm port site. The specimen will now be sent to pathology for further review. I then copiously irrigated the right upper quadrant. Some mild oozing was noted in the liver bed and this was controlled with the bovie cautery. Hemostasis was noted in the liver bed, the clips were noted to be in good position on both the cystic duct stump and the cystic artery stump. No other pathology was noted in the right upper quadrant. Under direct visualization, I made a small incision in the right upper quadrant. The Nikhil-Cut biopsy device was then placed in the abdominal cavity. Under direct visualization, I proceeded to take multiple biopsies of the liver. Once adequate tissue was obtained, the biopsies were sent to pathology for further review. I then gained hemostasis using the Bovie cautery. I then moved the laparoscope to the subxiphoid port. No iatrogenic injury or other pathology was noted in the lower abdomen. I then closed the 12 mm trocar site under direct visualization using the Sen cone and 0 Vicryl suture. At this point, the abdomen was desufflated and all ports removed. All port sites were then closed with 4.O Monocryl subcuticular sutures. Dermabond was placed on each incision. The patient tolerated the procedure well, was extubated in the operating room postoperative and will be transferred to the recovery room in stable condition Estimated Blood Loss 20 Drains No Packing No Pathology Yes Complications No immediate complications Condition Stable Disposition PACU [facility] Billing Surgery - Charge Forwar
[2023-12-12] MEDS: fentaNYL CITRATE INJ (*CRX) 100 MCG/2 ML VIAL 25 MCG IV PUSH ×6 (13:10→13:34)
[2023-12-12] MEDS: HYDROmorphone HCL INJ (*CRX) 1 MG/ML SYR 0.5 MG IV PUSH ×3 (13:38→14:02)
--- NOTE | 2023-12-12 15:03 | WPDGIPROGNO ---
Progress Note: A&P Assessment and Plan (1) Elevated liver enzymes: Code(s): R74.8 - Abnormal levels of other serum enzymes Status: Acute Assessment and Plan: bili down to 2 mrcp reviewed, normal bile duct s/p lap namita, also had liver biopsy work up pending (2) Polyp of gallbladder: Code(s): K82.4 - Cholesterolosis of gallbladder Status: Acute Assessment and Plan: s/p lap namita pending pathology (3) Epigastric abdominal pain: Code(s): R10.13 - Epigastric pain Status: Acute Subjective Date/time seen: 12/12/23 15:03 Interval history: today had lap namita, he is recovering from surgery Review of Systems Review of Systems: All systems reviewed & are unremarkable except as noted in HPI and below Exam Const: General: comfortable and no acute distress HENMT: Face/Nose/Sinus: Normal nares present Eyes: General: appearance normal, both eyes and all related structures Neck: Neck: supple Resp: Auscultation: clear to auscultation bilaterally Cardio: Rate: regular rate Rhythm: regular rhythm GI: Inspection: non-distended GI Palp: Yes Soft to palpation and Yes Tenderness to palpation present (GI) (mild ttp but from recent surgery mostly) Auscultation: normal bowel sounds Skin: General skin exam: normal color Neuro: Speech: normal speech Motor exam (neuro): 5/5 motor strength present throughout Extrem: General: normal to inspection Psych: Mental Status: mental status grossly normal Objective Data Vital Signs Vital Signs: Vital Signs - 24 hr 12/11/23 21:01 12/12/23 05:40 12/12/23 08:00 Temperature 97.8 F 97.3 F L Pulse Rate 69 61 Respiratory Rate 14 16 Blood Pressure 110/54 L 102/61 Pulse Oximetry 98 100 Oxygen Delivery Room Air Oxygen Flow Rate 12/12/23 11:34 12/12/23 12:56 12/12/23 13:00 Temperature 98.2 F 98.1 F Pulse Rate 86 94 85 Respiratory Rate 17 20 Blood Pressure 117/54 L 129/88 147/97 H Pulse Oximetry 100 100 100 Oxygen Delivery Room Air Simple Face Mask Simple Face Mask Oxygen Flow Rate 8 8 12/12/23 13:15 12/12/23 13:30 12/12/23 13:33 Temperature Pulse Rate 80 76 Respiratory Rate 18 20 Blood Pressure 143/70 H 144/94 H Pulse Oximetry 100 100 100 Oxygen Delivery Simple Face Mask Simple Face Mask Room Air Oxygen Flow Rate 8 8 12/12/23 13:45 12/12/23 14:00 Temperature Pulse Rate 76 75 Respiratory Rate 12 14 Blood Pressure 136/87 125/76 Pulse Oximetry 98 96 Oxygen Delivery Room Air Room Air Oxygen Flow Rate Intake/Output Intake/Output: Intake & Output 12/09/23 12/10/23 12/11/23 12/12/23 23:59 23:59 23:59 23:59 Intake Total 1240 240 125.5 Balance 1240 240 125.5 Meds/Results Medications: Active Medications Generic Name Dose Route Start Last Admin Trade Name Freq PRN Reason Stop Dose Admin Acetaminophen 650 mg 12/10/23 21:30 Acetaminophen 325 Mg Tablet PO Q6H PRN Mild Pain (1-3) or Fever Hydrocodone Bitart/Acetaminophen 1 tab 12/12/23 14:42 Hydrocodone/Acetaminophen (*Crx) 5-325 Mg Tablet PO Q4H PRN Pain Rated 4-6 Morphine Sulfate 2 mg 12/10/23 21:30 Morphine Sulfate (*Crx) 2 Mg/Ml Inj IV PUSH Q4H PRN Pain Rated 7-10 Pantoprazole Sodium 40 mg 12/11/23 09:00 12/12/23 08:22 Pantoprazole Sodium Iv 40 Mg Vial IV PUSH 40 mg QAM REINA Administration Radiology Results: ITS Impressions Abdomen/Pelvis CT 12/10/23 12:14 IMPRESSION: 1. No intra or extra hepatic biliary ductal dilation or other acute intra-abdominal/pelvic process. 2. Multiple gallbladder polyps measuring up to 7 mm. Abdomen Ultrasound 12/10/23 13:10 IMPRESSION: 1. At least 10 gallbladder polyps measuring up to 7 mm scattered along the dependent and nondependent wall of the otherwise normal-appearing gallbladder. Otherwise unremarkable right upper quadrant ultrasound. MRCP 12/11/23 12:01 IMPRESSION: 1. No etiology for the pa
[2023-12-12] MEDS: HYDROcodone/acetaminophen (*CRX) 5-325 MG TABLET 1 TAB PO (20:27)
[2023-12-13] MEDS: HYDROcodone/acetaminophen (*CRX) 5-325 MG TABLET 1 TAB PO ×3 (00:55→13:16)
[2023-12-13 01:00] VITALS: BP 132/72; PULSE 64; RESP 18; TEMP 36; O2SAT 98
[2023-12-13 04:20] VITALS: BP 113/70; PULSE 95; RESP 22; TEMP 36.6; O2SAT 98
[2023-12-13 06:34] LABS: Basophils Percent Auto 0.2 % (0.2-1.2); Eosinophils Absolute Auto 0.2 K/mm3 (0-0.3); Eosinophils Percent Auto 1.6 % (0-4.4); Hematocrit 44.7 % (42.0-52.0); Hemoglobin 15.7 g/dL (14.0-18.0); Immature Granulocyte Absolute 0.05 K/mm3 (0.00-0.031); Immature Granulocyte Percent A 0.4 % (0-0.5); Lymphocytes Percent Auto 19.4 % (18.3-44.2); Mean Corpuscular HGB Conc 35.1 g/dl (32-36); Mean Corpuscular Hemoglobin 30.8 pg (26-34); Mean Corpuscular Volume 87.8 fl (80-100); Mean Platelet Volume 10.7 fl (7.4-10.4); Monocytes Percent Auto 8.4 % (2.6-8.5); Neutrophils Absolute Auto 7.9 K/mm3 (1.3-6.7); Platelet Count Result 199 k/mm3 (150-375); Red Blood Count 5.09 M/mm3 (4.6-6.20); Red Cell Distribution Width 12.6 % (11.5-14.5); White Blood Count 11.3 K/mm3 (4.5-10.0)
[2023-12-13 06:44] LABS: Alanine Aminotransferase 246 U/L (6-50); Alkaline Phosphatase 95 U/L (38-126); Anion Gap 11 mmol/L (4-12); Aspartate Amino Transferase 85 U/L (17-59); Bilirubin,Total 1.4 mg/dL (0.2-1.3); Blood Urea Nitrogen 13 mg/dL (9-20); Calcium 8.8 mg/dL (8.4-10.2); Carbon Dioxide 26 mmol/L (22-30); Chloride 98 mmol/L (98-107); Estimated CRCL calculation 121 ml/min; Estimated Glomerular Filt Rate > 60; Glucose 96 mg/dL (65-110); Potassium 3.8 mmol/L (3.4-5.0); Sodium 135 mmol/L (137-145)
[2023-12-13] MEDS: PANTOPRAZOLE SODIUM IV 40 MG VIAL IV PUSH (07:40)
[2023-12-13] MEDS: MORPHINE SULFATE (*CRX) 2 MG/ML INJ IV PUSH (07:42)
[2023-12-13 08:00] VITALS: O2SAT 98
[2023-12-13] MEDS: ACETAMINOPHEN 325 MG TABLET 650 MG PO (10:05)
--- NOTE | 2023-12-13 13:32 | PM.DS ---
DS: Admitting Diagnosis Discharge Date 12/13/2023 Admitting Diagnosis Abdominal pain DS: Discharge Diagnosis Discharge Diagnosis (1) Transaminitis: Code(s): R74.01 - Elevation of levels of liver transaminase levels Status: Acute (2) Elevated liver enzymes: Code(s): R74.8 - Abnormal levels of other serum enzymes Status: Acute (3) Hyperbilirubinemia: Code(s): E80.6 - Other disorders of bilirubin metabolism Status: Acute (4) Polyp of gallbladder: Code(s): K82.4 - Cholesterolosis of gallbladder Status: Acute DS: Summary Hospital Course Reason for hospitalization: Abdominal pain Hospital Course: The previously healthy 27-year-old male who presented to the emergency department via private vehicle for evaluation of abdominal pain. The patient provides the following history. He had tater tot casserole for dinner last night and sometime around midnight he developed epigastric abdominal pain which he describes as being sharp and shooting in nature. It does not radiate and he denies aggravating and alleviating factors. He was unable to sleep due to the pain. It is not necessarily unusual for him to have heartburn however the symptoms are much different. Yesterday morning he took 2 Tums at about 08:00 without improvement and he came in for evaluation. He had a bowel movement sometime in the middle of the night which was unremarkable. He has not noticed any bright red blood or dark stools. He also denies bloating, belching, nausea, and vomiting. She also denies fever, chills, sweats, chest pain, and shortness of breath. He has no known history of gastritis, ulcers, gallbladder disease, or pancreatitis. He denies alcohol abuse and NSAID use. He does drink several energy drinks a day however. Weight has remained stable. No recent travel or sick contacts. Pain is a 7 , constant, and reports feels painful. In the ED: Labs were significant for WBC count of 10.1, total bilirubin 4.0, AST 433, ALT 259, alkaline phosphatase 81, normal lipase. CT of the abdomen and pelvis showed no intra or extrahepatic biliary ductal dilatation or other acute intra-abdominal/pelvic process but did note multiple gallbladder polyps measuring up to 7 mm. Right upper quadrant ultrasound showed at least 10 gallbladder polyps in an otherwise normal-appearing gallbladder MRCP showed: The common duct is normal and measures 3 mm. No choledocholithiasis. IMPRESSION: 1. No etiology for the patient's symptoms. Hepatitis panel was negative. EKG SR. 12/12/23: Cholecystectomy and a liver biopsy. Liver enzymes improved today ( AST 85, ALT 246, and Total Bilirubin 1.4). Status at Discharge Functional status at discharge: independent ambulation Overall status at discharge: patient is progressing back to baseline Time Spent with Patient Time attestation: Total time spent providing and/or coordinating discharge services: Time spent: Greater than 30 minutes Exam Narrative: General: Well-developed, nontoxic-appearing male in the semi-Ponce position in bed. Weight: 80.5kg. BMI: 26.2. HEENT: PERRL, EOMI. Sclera anicteric. Oral mucosa moist. Neck: Supple. Respiratory: Lungs are clear to auscultation bilaterally. Cardiovascular: Regular rate and rhythm with S1-S2. Gastrointestinal: Abdomen is soft, nontender, and nondistended with positive bowel sounds. The patient did receive pain medication not long prior to my examination. Skin: Warm and dry. Does not appear jaundiced. Surgical incisions no redness or drainage noted. Extremities: No cyanosis, clubbing, or edema. Radial and pedal pulses intact. Neurological: Alert. Cranial nerves 2-12 are grossly intact. No gross focal deficits to casual conversation. Psychiatric: Pleasant and cooperative with normal mood and affect. Judgment and insight intact. DS: Data Data Completed and Pending Pending studies at discharge: Pending at discharge 12/12/23 12:34 Surgical [PTH] Routine
[2023-12-13 14:00] VITALS: BP 121/78; PULSE 81; RESP 17; TEMP 37.3; O2SAT 99
--- NOTE | 2023-12-13 14:31 | WPDGIPROGNO ---
Progress Note: A&P Assessment and Plan (1) Elevated liver enzymes: Code(s): R74.8 - Abnormal levels of other serum enzymes Status: Acute Assessment and Plan: bili down to 1.4, no alcohol use advised not to use gym protein powder anymore mrcp reviewed, normal bile duct s/p lap namita with liver biopsy pending follow-up office in 4-6 weeks (2) Polyp of gallbladder: Code(s): K82.4 - Cholesterolosis of gallbladder Status: Acute Assessment and Plan: s/p lap namita pending pathology (3) Epigastric abdominal pain: Code(s): R10.13 - Epigastric pain Status: Acute Subjective Date/time seen: 12/13/23 14:31 Interval history: pain is improved from surgery, overall better and he is going home today Review of Systems Review of Systems: All systems reviewed & are unremarkable except as noted in HPI and below Exam Const: General: comfortable and no acute distress HENMT: Face/Nose/Sinus: Normal nares present Eyes: General: appearance normal, both eyes and all related structures Neck: Neck: supple Resp: Auscultation: clear to auscultation bilaterally Cardio: Rate: regular rate Rhythm: regular rhythm GI: Inspection: non-distended GI Palp: Yes Soft to palpation and Yes Tenderness to palpation present (GI) (mild ttp but from recent surgery mostly) Auscultation: normal bowel sounds Skin: General skin exam: normal color Neuro: Speech: normal speech Motor exam (neuro): 5/5 motor strength present throughout Extrem: General: normal to inspection Psych: Mental Status: mental status grossly normal Objective Data Vital Signs Vital Signs: Vital Signs - 24 hr 12/12/23 14:35 12/12/23 14:50 12/12/23 15:20 Temperature 97.7 F 98.3 F 96.7 F L Pulse Rate 74 72 78 Respiratory Rate 18 18 18 Blood Pressure 125/75 120/68 109/63 Pulse Oximetry 100 99 97 Oxygen Delivery 12/12/23 16:20 12/12/23 20:20 12/13/23 01:00 Temperature 98.3 F 96.4 F L 96.8 F L Pulse Rate 79 80 64 Respiratory Rate 18 16 18 Blood Pressure 124/68 115/67 132/72 Pulse Oximetry 97 98 98 Oxygen Delivery 12/13/23 04:20 12/13/23 08:00 Temperature 98 F Pulse Rate 95 Respiratory Rate 22 H Blood Pressure 113/70 Pulse Oximetry 98 98 Oxygen Delivery Room Air Intake/Output Intake/Output: Intake & Output 12/10/23 12/11/23 12/12/23 12/13/23 23:59 23:59 23:59 23:59 Intake Total 8791 016 0575.5 650 Balance 6631 822 4791.5 650 Meds/Results Medications: Active Medications Generic Name Dose Route Start Last Admin Trade Name Freq PRN Reason Stop Dose Admin Acetaminophen 650 mg 12/10/23 21:30 12/13/23 10:05 Acetaminophen 325 Mg Tablet PO 650 mg Q6H PRN Administration Mild Pain (1-3) or Fever Hydrocodone Bitart/Acetaminophen 1 tab 12/12/23 14:42 12/13/23 13:16 Hydrocodone/Acetaminophen (*Crx) 5-325 Mg Tablet PO 1 tab Q4H PRN Administration Pain Rated 4-6 Morphine Sulfate 2 mg 12/10/23 21:30 12/13/23 07:42 Morphine Sulfate (*Crx) 2 Mg/Ml Inj IV PUSH 2 mg Q4H PRN Administration Pain Rated 7-10 Pantoprazole Sodium 40 mg 12/11/23 09:00 12/13/23 07:40 Pantoprazole Sodium Iv 40 Mg Vial IV PUSH 40 mg QAM REINA Administration Radiology Results: ITS Impressions Abdomen/Pelvis CT 12/10/23 12:14 IMPRESSION: 1. No intra or extra hepatic biliary ductal dilation or other acute intra-abdominal/pelvic process. 2. Multiple gallbladder polyps measuring up to 7 mm. Abdomen Ultrasound 12/10/23 13:10 IMPRESSION: 1. At least 10 gallbladder polyps measuring up to 7 mm scattered along the dependent and nondependent wall of the otherwise normal-appearing gallbladder. Otherwise unremarkable right upper quadrant ultrasound. MRCP 12/11/23 12:01 IMPRESSION: 1. No etiology for the patient's symptoms. Labs Labs: Laboratory Results - last 24 hr 12/13/23 06:04 WBC 11.3 H RBC 5.09 Hgb 15.7 Hct 44.7 M
[2023-12-14 14:48] LABS: Ceruloplasmin 22 mg/dL (14-30)
[2023-12-17 13:04] LABS: Actin Antibody (IgG) <20 U (<20)
[2023-12-20 01:18] LABS: Mitochondrial (M2) Ab (IgG) <20.0 U
== END 2023-12-13 15:56 | disposition home or self-care (01) ==
LOC: ANHED 09:49 → ANH3MEDSUR 15:45
PROVIDERS: Internal Medicine Gastroenterology; Nurse Practitioner Family; Physician Assistant; Surgery; Admitting Provider Internal Medicine; Emergency Provider Physician Assistant; PCP Family Medicine; Visit Provider Internal Medicine
PROC: 0FT44ZZ Resection of Gallbladder, Percutaneous Endoscopic Approach (ICD-10-PCS; CPT 47562; principal; 2023-12-12 12:00)
DX: K82.4 Cholesterolosis of gallbladder (principal); K76.0 Fatty (change of) liver, not elsewhere classified; R74.01 Elevation of levels of liver transaminase levels; E80.6 Other disorders of bilirubin metabolism; F17.290 Nicotine dependence, other tobacco product, uncomplicated
CPT/HCPCS: 47562; 47379; 36415; 74177; 74183; 76376; 76705; 80048; 80053; 80074; 80076; 80307; 81001; 82104; 82390; 82550; 82728; 83520; 83540; 83550; 83690; 83735; 84484; 85025; 85027; 85380; 86364; 88304; 88307; 88312; 88313; 93005; 96361; 96374; 96375; 99285; A9270; A9577; G0378; J0330; J0690; J1100; J1170; J2250; J2270; J2371; J2405; J2470; J2704; J3010; J7030; J7120; Q9967